=== PATIENT | male | born 1990 | race American Indian/Alaskan Native ===

== ENCOUNTER 2017-09-24 07:38 | Emergency (ER) | payer BC ==
[2017-09-24 08:05] LABS: Basophils # (Auto) 0.1 K/mm3 (0.0-0.1); Basophils % (Auto) 0.6 % (0.0-1.8); Eosinophils # (Auto) 0.3 K/mm3 (0.0-0.4); Eosinophils % (Auto) 3.5 % (0.0-4.3); Hematocrit 48.3 % (35.5-45.6); Hemoglobin 15.4 gm/dl (11.8-15.2); Lymphocytes # (Auto) 2.4 K/mm3 (1.2-5.4); Lymphocytes % (Auto) 27.5 % (13.4-35.0); Mean Corpuscular HGB Conc 32 % (32-34); Mean Corpuscular Hemoglobin 27 pg (28-32); Mean Corpuscular Volume 84 fl (84-94); Monocytes # (Auto) 0.7 K/mm3 (0.0-0.8); Monocytes % (Auto) 8.3 % (0.0-7.3); Platelet Count 366 K/mm3 (140-440); Red Blood Count 5.77 M/mm3 (3.65-5.03); Red Cell Distribution Width 14.7 % (13.2-15.2)
[2017-09-24 08:24] LABS: Alanine Aminotransferase 9 units/L (7-56); Albumin 3.8 g/dL (3.9-5); BUN/Creatinine Ratio 9; Blood Urea Nitrogen 7 mg/dL (9-20); Calcium 9.2 mg/dL (8.4-10.2); Hemolysis Index 16; Lipase 57 units/L (13-60)
[2017-09-24 09:09] LABS: Bilirubin,Urine NEG (Negative); Blood,Urine NEG (Negative); Color,Urine Yellow (Yellow); Protein,Urine <15 mg/dL mg/dL (Negative); Urobilinogen,Urine < 2.0 mg/dL (<2.0)
[2017-09-24] MEDS ORDERED: NACL 0.9% 1000 ML 1,000 ML ONE (09:36)
[2017-09-24] MEDS ORDERED: NACL 0.9% 1000 ML 1,000 ML IV ONE (10:25)
[2017-09-24] MEDS ORDERED: LIDOCAINE VISCOUS 2% PO ONE (10:26)
[2017-09-24] MEDS ORDERED: ALUM-MAG HYDROX-SIMETH 200-200-20MG/5ML PO ONE (10:27)
--- NOTE | 2017-09-24 10:32 | Emergency Department Report ---
ED Abdominal Pain HPI - General Chief Complaint: Abdominal Pain Stated Complaint: ABD PAIN Time Seen by Provider: 09/24/17 10:11 Source: patient Mode of arrival: Ambulatory Limitations: No Limitations - History of Present Illness Initial Comments: Healthy 27-year-old man presents with chief complaint of one-week history of predominantly epigastric discomfort, which is constant and aching in quality, without radiation, moderate severity, with intermittent bouts of vomiting, and occasional flecks of blood, as well as frequent bouts of brown to yellowish watery diarrhea, 6-8 episodes per day, with intermittent flecks of blood as well. Has had no prior history of gastrointestinal problems, no recent travel, no exposures, and does not reliably notice any aggravation or alleviation with food. He works in [employer] department at [employer], and has not been around any ill patients and has not eaten any known bad foods. He does not smoke, and takes no routine medications. Onset/Timin -: Gradual, days(s) Location: epigastric Radiation: none Migration to: no migration Quality: aching Consistency: constant Improves With: nothing Worsens With: nothing Associated Symptoms: nausea, vomiting, diarrhea. denies: melena - Related Data Previous Rx's Medication Instructions Recorded Last Taken Type Ciprofloxacin HCl [Cipro] 500 mg PO BID #10 tablet 09/24/17 Unknown Rx Dicyclomine [Bentyl] 10 mg PO QID PRN #15 capsule 09/24/17 Unknown Rx HYDROcodone/ACETAMINOPHEN [[place] 1 each PO Q6HR PRN #15 tablet 09/24/17 Unknown Rx 5-325 Tablet] Loperamide HCl [Anti-Diarrheal] 2 mg PO PRN PRN #15 tablet 09/24/17 Unknown Rx Ondansetron [Zofran ODT TAB] 8 mg PO Q8HR PRN #10 tab.rapdis 09/24/17 Unknown Rx Allergies Allergy/AdvReac Type Severity Reaction Status Date / Time No Known Allergies Allergy Unverified 09/24/17 07:43 ED Review of Systems ROS: Stated complaint: ABD PAIN Other details as noted in HPI Comment: All other systems reviewed and negative Constitutional: denies: chills, fever Eyes: denies: eye pain, eye discharge, vision change ENT: denies: ear pain, throat pain Respiratory: denies: cough, shortness of breath, wheezing Cardiovascular: denies: chest pain, palpitations Gastrointestinal: as per HPI Genitourinary: denies: urgency, dysuria Musculoskeletal: denies: back pain, joint swelling, arthralgia Skin: denies: rash, lesions Neurological: denies: headache, weakness, paresthesias Psychiatric: denies: anxiety, depression ED Past Medical Hx - Past Medical History Previous Medical History?: No - Surgical History Past Surgical History?: No - Social History Smoking Status: Never Smoker Substance Use Type: None - Medications Home Medications: Home Medications Medication Instructions Recorded Confirmed Last Taken Type Ciprofloxacin HCl [Cipro] 500 mg PO BID #10 tablet 09/24/17 Unknown Rx Dicyclomine [Bentyl] 10 mg PO QID PRN #15 capsule 09/24/17 Unknown Rx HYDROcodone/ACETAMINOPHEN [[place] 1 each PO Q6HR PRN #15 tablet 09/24/17 Unknown Rx 5-325 Tablet] Loperamide HCl [Anti-Diarrheal] 2 mg PO PRN PRN #15 tablet 09/24/17 Unknown Rx Ondansetron [Zofran ODT TAB] 8 mg PO Q8HR PRN #10 tab.rapdis 09/24/17 Unknown Rx ED Physical Exam - General Limitations: No Limitations General appearance: alert, in no apparent distress, anxious - Head Head exam: Present: atraumatic, normocephalic - Eye Eye exam: Present: PERRL, EOMI - ENT ENT exam: Present: mucous membranes moist - Neck Neck exam: Present: normal inspection. Absent: tenderness - Respiratory Respiratory exam: Present: normal lung sounds bilaterally - Cardiovascular Cardiovascular Exam: Present: regular rate - GI/Abdominal GI/Abdominal exam: Present: soft, tenderness (mild, epigastrium, no rebound or guarding), normal bowel sounds. Absent: guarding, rebound - Extremities Exam Extremities exam: Present: normal inspection - Back Exam Back exam: Present: normal inspection - Psychiatric Psychiatric exam: Present: normal affect, normal mood - Skin Skin exam: Present: warm, dry, intact, normal color. Absent: rash ED Course Vital Signs 09/24/17 09/24/17 09/24/17 07:43 09:31 09:45 Temperature 36.9 C Pulse Rate 94 H 84 Respiratory 16 15 18 Rate Blood Pressure 159/95 Blood Pressure 157/86 [Left] O2 Sat by Pulse 99 100 Oximetry - Reevaluation(s) Reevaluation #1: 09/24/17 11:44 Patient remained stable, rehydrated with saline while awaiting lab results and x -rays, but no medications given, as patient came here on his own, and would be driving home by himself. Findings of hyperglycemia with elevated glucose discussed, likely indication that this would be a new diagnosis of diabetes mellitus, but given the patient is not acidotic, but he has underlying condition of gastroenteritis, as well as possible urinary tract infection, we will treat these, and recommended he have close follow-up with a primary care doctor before initiating medication. ED Medical Decision Making - Lab Data Result diagrams: 09/24/17 07:47 09/24/17 07:47 - Radiology Data interpreted by me: Acute abdominal series is nonspecific, showing unremarkable gas pattern, with nonobstructive gas pattern small bowel and large bowel, no evidence of free air , and no other significant intra-abdominal pathology. - Medical Decision Making This patient has findings of acute gastroenteritis which brings him in, which will be treated symptomatically, as he has a generally benign examination and unremarkable plain abdominal films. However, patient does have a significant hyperglycemia, which likely indicates a new diagnosis of diabetes mellitus, but also complicated by his acute gastroenteritis, and possible finding of urinary tract infection, which could contribute to patient's hyperglycemia. Nonetheless , I suspect that patient has a true underlying diagnosis of diabetes, but since she is not acidotic and his complicated conditions, initiation of treatment is not warranted at this time, but will depend on glucose levels at time of recheck HIS symptoms have improved. - Differential Diagnosis gastroenteritis, diverticulitis, gastritis Critical Care Time: No Critical care attestation.: If time is entered above; I have spent that time in minutes in the direct care of this critically ill patient, excluding procedure time. ED Disposition Clinical Impression: Gastroenteritis, Hyperglycemia, unspecified Urinary tract infection Qualifiers: Urinary tract infection type: site unspecified Hematuria presence: with hematuria Qualified Code(s): N39.0 - Urinary tract infection, site not specified Disposition: -01 TO HOME OR SELFCARE Is pt being admited?: No Does the pt Need Aspirin: No Condition: Stable Instructions: Urinary Tract Infection in Men (ED), Gastroenteritis (ED), Acute Nausea and Vomiting (ED) Additional Instructions: We are treating you today for gastroenteritis, which generally clears itself with rest, and we are treating symptoms of pain, cramping, nausea, and diarrhea. Take hydrocodone for pain, following directions, every 4-6 hours as needed Take Bentyl for abdominal cramping, which may be taken up to 4 times per day, again, as needed. Take ondansetron, up to every 8 hours, or 3 times per day, as needed, for nausea or vomiting. Take Imodium, 2 mg, after each loose bowel movement, up to a total maximum dose of 8 pills, or 60 mg, in any one day. We are also prescribing Cipro, 500 mg, twice daily for the next 5 days, for treatment of urinary tract infection. Your blood sugar is high today, 350, and this is likely sign of onset of diabetes mellitus. This elevation could be partially explained by urinary acute illness, and may drop once you're feeling better, and for this reason, we are not started on any medication today. Nonetheless, this is strongly significant signed you do have underlying diabetes , and he will need to establish with a doctor, and we recommend a recheck in 48- 72 hours, and to have your blood glucose rechecked, and to discuss treatment options with the doctor who will be seeing you on a regular basis from that time. We have given you follow-up with Dr. Jahaira Elder, , who is on-call, but you will need to call the office Monday morning to make arrangements for follow-up appointment on urine. We have provided a work note, which were released her from work for the next 4 days, Lisha you to recuperate, and to make arrangements to have a follow-up visit. We have taken cultures of the stool, and if there are any results that require additional treatment, we will contact you, and make arrangements for you to have appropriate treatment. Prescriptions: Ciprofloxacin HCl [Cipro] 500 mg PO BID #10 tablet Dicyclomine [Bentyl] 10 mg PO QID PRN #15 capsule PRN Reason: cramping HYDROcodone/ACETAMINOPHEN [[place] 5-325 Tablet] 1 each PO Q6HR PRN #15 tablet PRN Reason: Pain Loperamide HCl [Anti-Diarrheal] 2 mg PO PRN PRN #15 tablet PRN Reason: Diarrhea Ondansetron [Zofran ODT TAB] 8 mg PO Q8HR PRN #10 tab.rapdis PRN Reason: Nausea Referrals: PATRICIA ELDER MD [Staff Physician] - 3-5 Days Forms: Work/School Release Form(ED) Time of Disposition: 11:53
--- NOTE | 2017-09-24 12:05 | XRay Report ---
FINAL REPORT EXAM: XR ABD SERIES W CXR 1V HISTORY: epigastric pain, diarrhea COMPARISON: None. TECHNIQUE: Frontal view of the chest and two views of the abdomen FINDINGS: The cardiomediastinal silhouette is normal in appearance. The lungs are clear without focal consolidation. There is no pleural effusion or pneumothorax. Nonobstructive bowel gas pattern. No free air. No abnormal calcification. No There is no acute soft tissue or osseous abnormality. IMPRESSION: No acute cardiopulmonary disease. Nonobstructive bowel gas pattern.
[2017-09-24 12:35] VITALS: BP 162/99
== END 2017-09-24 12:36 | disposition home or self-care (01) ==
LOC: ED 07:38
DX: K52.9 Noninfective gastroenteritis and colitis, unspecified (principal); N39.0 Urinary tract infection, site not specified; R73.9 Hyperglycemia, unspecified
CPT/HCPCS: 36415; 74022; 80053; 81001; 82270; 82962; 83690; 85007; 85025; 87045; 96360; 99284; J7030